=== PATIENT | female | born 1945 | race Caucasian/White ===

== ENCOUNTER → 2016-09-06 | Day surgery (SDC) | payer OTHER ==
[~2016-09-06] VITALS: Ht 160 cm; Wt 96.6 kg
[~2016-09-06] MED LIST: PRAVASTATIN
--- NOTE | 2016-09-06 12:53 | Operative Report ---
Operative/Inv Procedure Report Surgery Date: 09/06/16 Name of Procedure: Left partial mastectomy with wire localization and left sentinel lymph node biopsy Pre-Operative Diagnosis: Left breast cancer Post-Operative Diagnosis: Same Estimated Blood Loss: less than 50ml Surgeon/Art Consultant: TIM CASTANEDA MD Anesthesia: laryngeal mask airway Specimens: Left lumpectomy, cranial margin, caudal margin, deep margin, margin, lateral margin, sentinel lymph node Operative/Procedure Note Note: Patient status post a biopsy showing invasive breast cancer. She is brought to the operating room for definitive surgery. Preoperative wire localization and lymphoscintigraphy were performed and those films were reviewed. 3 mL of methylene blue diluted with 2 mL saline was injected in the retroareolar fashion. Anesthesia was administered and the left breast and axilla were prepped and draped in a sterile fashion using ChloraPrep. Local anesthesia 1% lidocaine mixed half percent Marcaine was given. The axilla was approached first. A transverse incision was made in the lower axilla. Subcutaneous tissue and clavipectoral fascia were divided. A hot lymph node was identified and excised. There was no other additional areas of increased uptake, blue lymph node, or palpable lymph nodes. Hemostasis was achieved. Tissue was proximal made using interrupted Vicryl sutures and the skin was closed using running Biosyn subcuticular stitch. The breast was then approached. The wire was inserted into the skin at 5:00. A curvilinear incision was made to excise a skin ellipse. A wide lumpectomy is performed extending from the skin both laterally and medially down to encompass the area of concern. The specimen was removed and marked for orientation using margin map. Additional margins were taken in the medial, lateral, cranial, caudal, and deep positions. The entire cavity was excised. Hemostasis achieved using electrocautery. Clips were used to ernestina the margins of the lumpectomy cavity. Deep tissue was approximated using interrupted Vicryl sutures, and skin was closed using a running Biosyn subcuticular stitch. Her sugars and sterile dressings were applied and the patient was transferred to the recovery room in satisfactory condition having tolerated the procedure well.
--- NOTE | 2016-09-07 06:27 | MAMMOGRAPHY REPORT ---
PROCEDURE: US GUIDED BREAST NEEDLE LOCALIZATION, LEFT MM SPECIMEN RADIOGRAPH CLINICAL INFORMATION: Biopsy-proven left breast cancer. COMPARISON: Left breast biopsy ultrasound and postbiopsy mammography of 08/12/2016. Left diagnostic mammography and left breast ultrasound of 08/07/2016. Screening mammography of 08/06/2016. TECHNIQUE NEEDLE LOCALIZATION: Proper informed consent is obtained from the patient after discussion of the procedure, potential risks and complications, and alternatives including declining the procedure today. Patient was given an opportunity for questions. The patient appeared to understand. The patient consented to the procedure and signed the consent form. GUIDANCE: Ultrasound APPROACH: Lateral TARGET: Irregular hypoechoic mass at 6 o'clock, 1 cm from nipple containing biopsy clip. ANESTHESIA: 1 mL lidocaine 1% LOCALIZATION MARKER: Skylrepans Preliminary ultrasound scanning revealed an irregular hypoechoic mass at 6 o'clock, 1 cm from nipple, measuring at least approximately 1.6 x 1.2 x 1.1 cm. Internal biopsy clip was noted. The skin was prepped and local anesthesia administered. The needle was positioned under ultrasound guidance; the wire was hooked into the position and the needle was removed. Position of the wire was assessed with 2 view mammography. The patient tolerated the procedure well and had no immediate complication. Diagram was marked for the surgeon. The target is at 6 o'clock, 6 cm deep to the skin with 9.5 cm of the wire remaining external to the skin. A single specimen radiograph was obtained. This shows the wire is delivered intact. The biopsy clip and irregular mass and calcifications are identified within the specimen. IMPRESSION: Status post left breast needle localization with wire hooked into position. The target is at 6 o'clock 1 cm from nipple, 6 cm deep to the skin with 9.5 cm of the wire remaining external to the skin. Satisfactory excision of the targeted lesion. The surgeon was notified of the recommendations at the time of the exam.
== END ==
LOC: STS 03:04 → CBW.IIU 07:00 → STS 07:00 → CBW.IIU 08:00 → CBW.MAMMO 08:30
DX: C50.812 Malignant neoplasm of overlapping sites of left female breast (principal); Z17.0 Estrogen receptor positive status [ER+]; E78.5 Hyperlipidemia, unspecified; K21.9 Gastro-esophageal reflux disease without esophagitis; E66.9 Obesity, unspecified; Z68.37 Body mass index [BMI] 37.0-37.9, adult
CPT/HCPCS: 76942; 88305; 88307; G0206-LT; G0279; J0131; J0690; J1100; J2001; J2250; J2405; Q9968